=== PATIENT | male | born 1960 | race Caucasian/White ===

== ENCOUNTER 2017-05-29 12:12 | Day surgery (SDC) | payer MEDICARE, MEDICAID ==
--- NOTE | 2017-05-29 06:19 | History and Physical Report ---
DATE: 05/28/2017. CHIEF COMPLAINT AND HISTORY OF CHIEF COMPLAINT: This is a patient with a history of an intractable lumbar radiculitis. He has a spinal infusion system with hydromorphone. Over the last refill, battery depletion was identified. He is here for battery replacement on an outpatient basis. PAST MEDICAL HISTORY: Noncontributory. REVIEW OF SYSTEMS: The patient seems appropriate and in no acute distress. The remainder of the systems review shows degenerative arthritis. PAST SURGICAL HISTORY: Knee surgery, shoulder surgery, hand surgery, pump implant. MEDICATIONS ON ADMISSION: To be provided. ALLERGIES: None. SOCIAL HISTORY: Cigarette smoking, caffeine consumption. FAMILY HISTORY: Noncontributory. PHYSICAL EXAMINATION: General: Height and weight are not known. Vital Signs: Unavailable. HEENT: Within normal limits. Lungs: Clear. Heart: Regular rate and rhythm. Abdomen: Nontender. Musculoskeletal: Examination of the musculoskeletal system shows the pump in the right posterior gluteal margin. The incision site is intact. His lower extremity functionality shows bilateral lower extremities. He does have a moderately severe thoracolumbar rotoscoliosis which would seem to be easily identified. Lower extremity sensory field and motor functionality is intact. Neurologic: Cranial nerves are intact. IMPRESSION: 1. LUMBAR RADICULITIS, ICD-10 CODE M54.16 AND M54.17. 2. MODERATELY SEVERE ROTOSCOLIOSIS OF THE THORACIC LUMBAR SPINE, ICD-10 CODE M41.25. 3. IMPLANTED SPINAL INFUSION SYSTEM WITH HYDROMORPHONE. PLAN: The patient is here for routine battery replacement on an outpatient basis. We will not make any changes to his infusion characteristics and will only replace the battery. Potential risks, side effects, and complications were carefully reviewed and discussed. JOB NUMBER: [id number] cc: Nancy Shetty
[~2017-05-29 12:12] MED LIST: ACETAMINOPHEN 1,000 MG/100 ML BTL IV ONE; BUPIVACAINE HCL IV ONE; CEFAZOLIN 2 Gram 2 GM/50 ML BAG IVPB ONE; FAMOTIDINE 20MG TABLET PO ONE; MECLIZINE 25 MG TABLET PO ONE; METOCLOPRAMIDE 10 MG TABLET PO ONE; MORPHINE SULFATE IV ONE; MORPHINE SULFATE/PF 0.05 MG in 0.9 % SODIUM CHLORIDE 10ML VIA 0.95 ML IV ONE; SODIUM CHLORIDE 0.9% IV ONE
[2017-05-29] MEDS ORDERED: LIDOCAINE 2% MDV (20MG/ML) 20ML VIAL IV ONE (12:13)
[2017-05-29] MEDS ORDERED: FENTANYL PF 100MCG/2ML VIAL IV ONE (12:13)
[2017-05-29] MEDS ORDERED: MIDAZOLAM HCL 2MG/2ML VIAL IV ONE (12:13)
[2017-05-29] MEDS ORDERED: BUPIVACAINE 0.5% W/EPI MPF 30 ML VIAL IVP ONE (12:13)
[2017-05-29] MEDS ORDERED: LIDOCAINE 1% W/EPI 1:200,000 MPF 30ML SQ ONE (12:13)
[2017-05-29] MEDS ORDERED: PROPOFOL 10 MG/ML VIAL IV ONE (12:13)
[2017-05-29] MEDS ORDERED: HYDROMORPHONE HCL 2 MG/ML VIAL IV ONE (12:13)
--- NOTE | 2017-05-29 16:32 | Operative Note - [facility] ---
DATE OF SURGERY: 05/29/17 PREOPERATIVE DIAGNOSES: 1. MODERATELY SEVERE THORACOLUMBAR ROTOSCOLIOSIS, ICD-10 CODE = M41.25. 2. INTRACTABLE LUMBAR RADICULITIS, ICD-10 CODE = M54.16 AND M54.17. 3. IMPLANTED SPINAL INFUSION SYSTEM INFUSING MORPHINE AND BUPIVACAINE WITH BATTERY DEPLETION. OPERATION: 1. FLUOROSCOPICALLY-GUIDED INCISION, SUBCUTANEOUS DISSECTION, REMOVAL, AND REPLACEMENT OF PROGRAMMABLE PUMP. 2. REVISION AND RESECTION OF SPINAL CATHETER. 3. DIAGNOSTIC MYELOGRAPHY WITH RADIOLOGIC SUPERVISION AND INTERPRETATION. SURGEON: YELENA CONNOR D.O. ANESTHESIA: LOCAL SEDATION. ANESTHESIA PROVIDER: ANY GIBBS CRNA. INDICATION: This patient presents with a history of intractable lumbar radiculitis with a spinal infusion system in place infusing Morphine and Bupivacaine. Over the last number of refills, he was brought in to the clinic and identified as having battery depletion. He is here for pump battery change. PROCEDURE: Intravenous line, vital sign monitoring, IV sedation, prepped and draped in sterile technique. Patient position prone. Sterile prep, sterile technique, and under imaging, the pump at the right posterior gluteal margin identified, skin infiltrated, incision made, and subcutaneous dissection was conducted to the pump pouch. The pump was then opened and the pump exteriorized. The catheter was seen kinked and bent behind fairly dense scar tissue sitting behind the Dacron sheath. Meticulous dissection of the catheter freeing the catheter of scar tissue from behind the Dacron sheath. The Dacron sheath was resected. Pump catheter was cleared. It was checked to verify no tears, obstructions, or leaks. Catheter was clean. The new pump was placed onto the field pre-filled with Morphine and Bupivacaine. The pump was then interfaced to the indwelling spinal catheter. A #24-gauge Acosta needle was inserted into the access port then 1 mL of catheter contents was aspirated clearing the catheter of opioid and CSF mixture. Antibiotic irrigation and Bovie for hemostasis. The pump was then placed in the resected and revised pouch and secured to the fascia with nonabsorbable suture and one pump eyelet. A curved 24-gauge Acosta needle was inserted back into the access port and contrast was injected. The resulting myelogram with radiologic supervision and interpretation showed contrast moving through the pump, moving to the pump catheter connection, and through the catheter without any kinks, bends, tears, or leaks. Catheter tip at T7 identified with appropriate flow characteristics noted confirming functionality. The pump was then programmed back to its initial parameters and then the incision was closed Vicryl for fascia and running subcuticular Vicryl for skin. Dermabond closure approximating the edges of the wound. His pump was set back into his existing flow characteristics. Flex dose total 7.8 mg over 24 hours. He was transported to the Recovery Room stable showing no side-effects from the procedure or the sedation. There have been no changes in his medication and no changes in his infusion characteristics. He was stable and prepared for discharge. DISCHARGE INSTRUCTIONS: 1. Sites will remain clean and dry. No showering or bathing in any way that would disrupt dressings. If it happens, contact the clinic. 2. Standard medications resumed including Levaquin, the antibiotic, 500 mg once a day for 14 days. 3. Spinal opioid side-effects including; respiratory depression, nausea, vomiting, constipation, urinary retention, light-headedness, or rash have all been discussed and reviewed. All other instructions provided, numbers to contact , problems given. At that point, he was prepared for discharged to home. cc: Dr. Bravo JOB NUMBER: [id number] MTDD
== END 2017-05-29 14:50 | disposition home or self-care (01) ==
LOC: SUR 12:12
PROVIDERS: ATTEND Pain Medicine Interventional Pain Medicine
DX: T85.890A Other specified complication of nervous system prosthetic devices, implants and grafts, initial encounter (principal); M54.16 Radiculopathy, lumbar region; M54.17 Radiculopathy, lumbosacral region; M41.25 Other idiopathic scoliosis, thoracolumbar region; F17.200 Nicotine dependence, unspecified, uncomplicated
CPT/HCPCS: 62362; 00300; 62367; Q9967; J3010; J1170; J0690

== ENCOUNTER 2018-08-13 10:41 | Day surgery (SDC) | payer MEDICARE, MEDICAID ==
--- NOTE | 2018-08-13 06:27 | History and Physical - [facility] ---
CHIEF COMPLAINT/HISTORY OF CHIEF COMPLAINT: This patient presents with a history of an intractable lumbar radiculopathy. He has extensive degenerative disease and moderately severe thoracolumbar rotoscoliosis. Due to the failure of therapy, a spinal cord stimulator trial was conducted on 07/14/18 with 75% pain control. Due to the failure of therapy and the success of the stimulator trial, he presents today for implantation of a permanent system. PAST MEDICAL HISTORY: Chronic abdominal pain, degenerative arthritis, intractable low back and leg pain. PAST SURGICAL HISTORY: Knee surgery, shoulder surgery, hand surgery, and pump implant. MEDICATIONS ON ADMISSION: List to be provided. ALLERGIES: None. FAMILY/PSYCHOSOCIAL HISTORY: Family history - Noncontributory. Social history - Smoker. SYSTEMS REVIEW: The patient is appropriate in no acute distress. The remainder of the systems review is noncontributory. PHYSICAL EXAMINATION: Height is 5'10", weight is 150. No vital signs. HEENT: Within normal limits. LUNGS: Clear. HEART: Rapid and regular. ABDOMEN: Nontender. MUSCULOSKELETAL: Examination of the musculoskeletal system shows diffuse tenderness throughout the lumbar spine. Range of motion produces pain throughout the low back and extending to the lower extremities, somewhat more left than right. Ambulation - No assistive device utilized. NEUROLOGIC: Cranial nerves are intact. There are mild motor and sensory abnormalities to the left lower extremity. IMPRESSION: 1. INTRACTABLE LOW BACK PAIN WITH RADICULOPATHY, ICD-10 CODE M47.816 WITH M54.16 AND M54.17. 2. MODERATELY SEVERE THORACOLUMBAR ROTOSCOLIOSIS, ICD-10 CODE M41.25. PLAN: Due to the failure of all therapies and the success of the spinal cord stimulator trial, the patient presents today for implantation of a permanent system. The procedure will be considered outpatient although an overnight stay will be evaluated. JOB NUMBER: [id number] MTDD
[~2018-08-13 10:41] MED LIST changes: -BUPIVACAINE HCL IV ONE; -MORPHINE SULFATE IV ONE; -MORPHINE SULFATE/PF 0.05 MG in 0.9 % SODIUM CHLORIDE 10ML VIA 0.95 ML IV ONE; -SODIUM CHLORIDE 0.9% IV ONE
[2018-08-13] MEDS ORDERED: MIDAZOLAM HCL 2MG/2ML VIAL IV ONE (10:42)
[2018-08-13] MEDS ORDERED: HYDROMORPHONE HCL 2 MG/ML VIAL IV ONE (10:42)
[2018-08-13] MEDS ORDERED: 0.9 % SODIUM CHLORIDE 10 ML VIAL IVP ONE (10:42)
[2018-08-13] MEDS ORDERED: CEFAZOLIN 1G VIAL IM ONE (10:42)
[2018-08-13] MEDS ORDERED: LIDOCAINE 2% MDV (20MG/ML) 20ML VIAL IV ONE (10:42)
[2018-08-13] MEDS ORDERED: PROPOFOL 10 MG/ML VIAL IV ONE (10:42)
[2018-08-13] MEDS ORDERED: FENTANYL PF 100MCG/2ML VIAL IV ONE (10:42)
[2018-08-13] MEDS ORDERED: RINGERS SOLUTION,LACTATED 1,000 ML IV ONE ×3 (11:10→14:45)
[2018-08-13] MEDS ORDERED: BUPIVACAINE 0.5% W/EPI MPF 30 ML VIAL SQ ONE ×2 (12:43)
[2018-08-13] MEDS ORDERED: LIDOCAINE 1% W/EPI 1:100,000 MDV 20 ML VIAL SQ ONE ×2 (12:43)
[2018-08-13] MEDS ORDERED: OXYCODONE/APAP 10MG-325MG TABLET PO ONE (14:25)
--- NOTE | 2018-08-16 18:47 | RADIOLOGY REPORT ---
EXAM: SPINE, 1 VIEW HISTORY: STATUS POST SPINAL CORD STIMULATOR IMPLANT. TECHNIQUE: Single frontal view of the thoracic spine. COMPARISON: Spinal radiograph, 01/10/2011. FINDINGS: Ascending spinal stimulator leads, lead tips superimposing the approximate T4 through 6 vertebral levels. For additional procedural details, please refer to the operative report. Thoracic spine dextrocurvature. IMPRESSION: ABOVE. JOB NUMBER: [id number] MTDD
--- NOTE | 2018-08-18 08:40 | Operative Note ---
DATE OF SERVICE: 08/13/2018. DATE OF SURGERY: 08/13/2018. PREOPERATIVE DIAGNOSES: 1. Intractable lumbar radiculopathy, ICD-10 Code M54.16, M54.17. 2. Moderately severe thoracolumbar rotoscoliosis, ICD-10 Code M41.25. OPERATION: 1. Fluoroscopic-guided epidural access, left T11-12, placement of spinal cord stimulator lead 1, a [employer] Infinion 16, 6 electrodes positioned left T4. 2. Fluoroscopic-guided epidural access, left T12-L1, placement of spinal cord stimulator lead 2, a [employer] Infinion 16, 6 electrodes positioned right T4. 3. Complex programming of lead 1, over 20 minutes, followed by complex programming of lead 2, over 20 minutes. 4. Incision, subcutaneous dissection and anchoring lead 1 and lead 2 to supraspinous fascia with a [employer] locking anchor nonabsorbable suture. 5. Incision, subcutaneous dissection, and creation of subcutaneous pouch at left posterior gluteal margin below the belt line for placement of generator identified as [employer] WaveWriter programmable rechargeable. 6. Tunneling between pouches, placement of external ports lead 1 and lead 2 into generator pouch, each lead interfaced to generator. 7. Placement of generator pouch, placement of leads into pouch, closure of both incisions using STRATAFIX suture 2-0 fascia, 3-0 skin, Dermabond closure, a complex recovery room programming, internal generator, home use, 2 stimulators , 20 minutes. SURGEON: Augusto Mendez DO. ANESTHESIA: Local sedation. ANESTHESIA PROVIDER: Shaan Espino CRNA. INDICATIONS: This patient presents with a history of intractable lumbar radiculopathy with a moderately severe rotoscoliosis. Due to the failure of therapies, a spinal stimulator trial was conducted with 75+% pain control. Due to the failure of therapies and the success of the trial, patient presents today for implantation of permanent system. SURGERY: Intravenous line, vital signs monitoring, IV sedation, prep and drape , sterile technique, under imaging, patient prone. From the left, the epidural interspace at T11-12 and 12-1 were marked, infiltrated with local. Then 2 standard curved access Epimed needles to loss of resistance to enter the space. Atraumatic. No blood. No CSF. At 11-12, spinal cord stimulator lead 1, a [employer] Infinion 16, 6 positioned left of midline at T4. With the access at 12-1, spinal cord stimulator lead 2, a [employer] Infinion 16, 6 positioned right of midline at T4. With the patient awake, complex programming over 20 minutes, lead 1 and lead 2, 40 minutes total, resulted in complete patterns of stimulation across the back into the legs, patient indicating coverage of all the areas of the pain. He was given the option of implant, continue to program, or remove. He opted implant. Questions repeated with the same response. He was re-sedated by Anesthesia. The skin above and below the needles was infiltrated, incision made, and subcutaneous dissection was conducted to the supraspinous fascia. Each needle was removed. Then the leads were anchored to the supraspinous fascia with a [employer] locking anchor and nonabsorbable suture. At the left posterior gluteal margin, a site picked by the patient for the generator, skin infiltrated, incision made, and subcutaneous dissection was conducted for a pouch of suitable size and depth for the generator, a [employer] programmable rechargeable WaveWriter. A tunneling tool was used to carry the leads into the generator pouch, and then each lead was interfaced to the generator. Antibiotic irrigation and Bovie for hemostasis at both sites. The generator was then placed in the pouch, the leads were placed in their own pouch, and both incisions were closed using STRATAFIX suture 2-0 fascia, 3-0 skin. Dermabond closure over each incision. He was then transported to the Recovery Room stable. There were no side- effects from the procedure or the sedation. There were no unusual pain patterns. He had full functionality of the extremities. When awake and alert, by his request, he was prepared for discharge home. DISCHARGE INSTRUCTIONS: 1. Sites remain clean and dry. No showering or bathing in any way that would disrupt dressings. If it happens, contact the clinic. 2. Standard medications resumed including the antibiotic Levaquin 500 mg once a day for 14 days. 3. The office will contact the patient at home in 12-24 hours for a time in 7- 10 days for us to check the sites. Until that time, he is to keep his activities controlled; limit bend, lift, push, pull. The dressing should stay intact. He should not pull it. Should it curl, he can trim edges but do not pull it off. All other instructions provided, numbers to contact with problems given. He will be seen in the office. cc: Dr. Mac Bravo JOB NUMBER: [id number] MTDD
== END 2018-08-13 14:45 | disposition home or self-care (01) ==
LOC: SUR 10:41
PROVIDERS: ATTEND Pain Medicine Interventional Pain Medicine
DX: M54.16 Radiculopathy, lumbar region (principal); M54.17 Radiculopathy, lumbosacral region; M41.25 Other idiopathic scoliosis, thoracolumbar region; F17.210 Nicotine dependence, cigarettes, uncomplicated; K21.9 Gastro-esophageal reflux disease without esophagitis
CPT/HCPCS: 63650; 63685; 01936; 95972; 72020; J3010; J1170; J0690; C1820; C1883; J7120